=== PATIENT | female | born 1980 | race African-American/Black ===

== ENCOUNTER 2016-09-26 21:40 | Emergency (ER) | payer BC, OTHER ==
[~2016-09-26 21:40] MED LIST: BACTRIM 400-801 TA1; BACTRIM 400-801 TA1 PO; BACTRIM DS TABL1 TA1 PO; MOTRIN600 M1 PO; NAPROSYN375 MG; NO MEDICATIONS; OMEPRAZOLE40 M1 PO
[2016-10-13] MEDS ORDERED: NO MEDICATIONS (23:57)
[2016-10-14] MEDS ORDERED: BACTRIM 400-801 EACH PO (00:50)
[2016-10-14] MEDS ORDERED: BACTROBAN15 GM TOP (00:50)
== END 2016-09-26 21:50 | disposition left against medical advice (07) ==
LOC: SED 21:40
DX: Z53.21 Procedure and treatment not carried out due to patient leaving prior to being seen by health care provider (principal)

== ENCOUNTER 2016-10-14 00:50 | Emergency (ER) | payer OTHER ==
[~2016-10-14 00:50] MED LIST changes: +BACTRIM 400-801 EACH PO; +BACTROBAN15 GM TOP
[2016-10-14] MEDS ORDERED: TYLENOL #3 PO (00:51)
== END 2016-10-14 00:52 | disposition home or self-care (01) ==
LOC: SED 00:50
DX: L02.411 Cutaneous abscess of right axilla (principal); N63 Unspecified lump in breast; Z90.710 Acquired absence of both cervix and uterus; F17.210 Nicotine dependence, cigarettes, uncomplicated; Z98.890 Other specified postprocedural states
CPT/HCPCS: 10060; 99283